=== PATIENT | female | born 1990 | race Caucasian/White ===

== ENCOUNTER 2019-11-05 09:25 | Outpatient (CLI) | payer OTHER, SELFPAY ==
--- NOTE | 2019-11-05 09:57 | PM.IMHP ---
H&P: HPI History of Present Illness Chief complaint: pre-op c/s labs Narrative: Roselyn Jaquez is a 29 year old female the 2 para 1001 with a last menstrual period of 01/26/2019, EDC of 11/11/2019 presents at term 39 weeks gestation for repeat section. She declines attempt at vaginal after . Her has been uncomplicated. She is positive for group B strep. Review of Systems Review of Systems: All systems reviewed & are unremarkable except as noted in HPI and below PMFSH Family History Family History Other Family history of malignant melanoma Social History Social History Smoking status: Never smoker Alcohol intake: current Meds Home Medications and Allergies Home Medications Medication Instructions Recorded Confirmed Type PNV cmb#95-ferrous fumarate-FA 1 tablet PO DAILY 10/15/19 10/15/19 History [] Allergies Allergy/AdvReac Type Severity Reaction Status Date / Time No Known Allergies Allergy Verified 10/15/19 15:36 Exam Const: General: no acute distress Eyes: General: appearance normal, both eyes and all related structures Neck: Neck: supple and no JVD Thyroid: thyroid normal Resp: Effort & Inspection: normal respiratory effort Auscultation: clear to auscultation bilaterally Cardio: Rate: regular rate Rhythm: regular rhythm GI: Inspection: non-distended GI Palp: Yes Soft to palpation, No Tenderness to palpation present (GI) and No Guarding due to palpation present (GI) Auscultation: normal bowel sounds : General: Yes bladder normal to palpation External Female Exam: normal external appearance Speculum Exam - Vagina: normal vaginal discharge and No vaginal bleeding Speculum Exam - Cervix: nontender Bimanual exam- vagina & uterus: bladder normal to palpation and No Cervical tenderness present OB/external & speculum: No vaginal bleeding Skin: General skin exam: no rashes or lesions noted Extrem: General: normal to inspection and no edema Psych: Mental Status: mental status grossly normal Affect: normal affect Assessment and Plan Additional Plan Impression: Term with positive group B strep of the and previous section Plan: Reviewed perforation section. Replenishment Analyst will be made aware of group B strep
[2019-11-05 10:03] LABS: Hematocrit 36.6 % (37.0-47.0); Hemoglobin 12.4 g/dL (12.0-15.0); Mean Corpuscular HGB Conc 33.9 g/dl (32-36); Mean Corpuscular Hemoglobin 31.8 pg (26-34); Mean Corpuscular Volume 93.8 fl (80-100); Mean Platelet Volume 11.6 fl (7.4-10.4); Platelet Count Result 185 k/mm3 (150-375); Red Cell Distribution Width 12.4 % (11.5-14.5); White Blood Count 9.7 K/mm3 (4.5-10.0)
[2019-11-06 10:57] LABS: Rapid Plasma Reagin Non-Reactive (NonReactive)
== END 2019-11-05 09:26 | disposition home or self-care (01) ==
PROVIDERS: PCP Family Medicine; Visit Provider Obstetrics & Gynecology
DX: Z34.93 Encounter for supervision of normal pregnancy, unspecified, third trimester (principal); Z3A.00 Weeks of gestation of pregnancy not specified
CPT/HCPCS: 36415; 85027; 86592; 86850; 86900; 86901

== ENCOUNTER 2019-11-06 05:30 | Inpatient (IN) | payer OTHER, SELFPAY ==
--- NOTE | 2019-11-05 10:00 | HP_ITS ---
This report was moved to the correct visit, [id number], on October 11, 2019. Original report was signed by Dr. Moore on November 05, 2019 at 1000. H&P: HPI History of Present Illness Chief complaint: pre-op c/s labs Narrative: Roselyn Jaquez is a 29 year old female the 2 para 1001 with a last menstrual period of 01/26/2019, EDC of 11/11/2019 presents at term 39 weeks gestation for repeat section. She declines attempt at vaginal after . Her has been uncomplicated. She is positive for group B strep. Review of Systems Review of Systems: All systems reviewed & are unremarkable except as noted in HPI and below PMFSH Family History Family History Other Family history of malignant melanoma Social History Social History Smoking status: Never smoker Alcohol intake: current Meds Home Medications and Allergies Home Medications Medication Instructions Recorded Confirmed Type PNV cmb#95-ferrous fumarate-FA 1 tablet PO DAILY 10/15/19 10/15/19 History [] Allergies Allergy/AdvReac Type Severity Reaction Status Date / Time No Known Allergies Allergy Verified 10/15/19 15:36 Exam Const: General: no acute distress Eyes: General: appearance normal, both eyes and all related structures Neck: Neck: supple and no JVD Thyroid: thyroid normal Resp: Effort & Inspection: normal respiratory effort Auscultation: clear to auscultation bilaterally Cardio: Rate: regular rate Rhythm: regular rhythm GI: Inspection: non-distended GI Palp: Yes Soft to palpation, No Tenderness to palpation present (GI) and No Guarding due to palpation present (GI) Auscultation: normal bowel sounds : General: Yes bladder normal to palpation External Female Exam: normal external appearance Speculum Exam - Vagina: normal vaginal discharge and No vaginal bleeding Speculum Exam - Cervix: nontender Bimanual exam- vagina & uterus: bladder normal to palpation and No Cervical tenderness present OB/external & speculum: No vaginal bleeding Skin: General skin exam: no rashes or lesions noted Extrem: General: normal to inspection and no edema Psych: Mental Status: mental status grossly normal Affect: normal affect Assessment and Plan Additional Plan Impression: Term with positive group B strep of the and previous section Plan: Reviewed perforation section. Sprinkler Irrigation Equipment Mechanic will be made aware of group B strep Report Initialized date/time: Chun Pelaez MD 11/05/19999 Electronically signed by: Chun Pelaez MD 11/05/19999 [facility]
[2019-11-06] VITALS (47 sets, daily range): BP systolic 91–133; BP diastolic 55–90; PULSE 53–74; RESP 16–18; TEMP 36.2–36.8; O2SAT 100; BMI 33.5
--- NOTE | 2019-11-06 06:16 | LDADM ---
This patient, Roselyn Jaquez, was admitted to Labor/Delivery/Recovery 120 on 11/06/19 at 05:30. Plans for labor, pain management and were discussed with patient. Patient/family oriented to hospital policies and general routines including ID bracelet, bed and alarms, visiting hours, pain management, procedures, bathroom and other care routines, personal items, smoking policy, room service/diet and guest tray routines, security routines, and visiting hours. Patient/Family are encouraged to report perceived risks to care and to ask questions if they do not understand what they are told or what they should do. See OBIX for further documentation.
[2019-11-06] MEDS: LACTATED RINGERS 1,000 ML 125 ML IV CONT (06:34)
--- NOTE | 2019-11-06 06:54 | WPDHPUPDATE1 ---
History and Physical Update Update Date/Time: 11/06/19 06:54 History and Physical has been reviewed, including an updated exam of the patient. There are NO changes in the patient's condition. Risks, benefits, and alternatives have been discussed and questions answered. Patient agrees to proceed with procedure.
[2019-11-06] MEDS: ceFAZolin 2 GM/D5W 50 ML 2 GM/50 ML BAG IVPB (07:18)
--- NOTE | 2019-11-06 08:00 | P.OP_ITS ---
Procedure Note - Detailed Date of procedure: 11/06/19 Pre-op diagnosis: repeat Surgeon: Chnu Moore MD Postop diagnosis: Repeat section Anesthesia: Spinal EBL: 255cc Complications: None Findings: Male infant 7 lb 10 oz with Apgars of 9 and 9 at 1 and 5 minutes respectively Description of procedure: Patient was prepped and draped in the normal sterile fashion placed in the supine position. Under excellent spinal anesthetic the abdomen was entered through the previous Pfannenstiel incision and progressive layers to the fascia. The fascia was incised in upward outward fashion bilaterally. A underlying muscles were sharply dissected. Parietal peritoneum mm calculi times and by sharp dissection. This carried superiorly and then inferiorly to the dome of the bladder. Bladder blade was placed placed. Bladder blade was replaced after bladder flap was formed. A low transverse incision made in the head delivered in the JARON position. Nuchal cord was nuchal noted to be loose x1 relieved around the occiput. Anterior posterior shoulder delivered spontaneously. Cord clamped x2 and cut and passed off the table given Apgars of 9 [id number] and 9 [id number]. Cord blood was drawn. Placenta delivered intact manually. Uterus delivered from the abdomen and w rapped in a moist towel. After inspecting the uterus and noting it to be free of debris. The uterus was closed with continuous running locking 0 Vicryl from lateral edge to lateral edge. This was followed by an imbricating running locking 0 Vicryl from lateral edge to lateral edge. Hemostasis was assured. The tubes and ovaries appeared within normal limits. The uterus returned to the abdomen. The laps removed and accounted for. The hysterotomy incision was inspected 1 last time and noted to be hemostatic. The fascia was then closed with continuous running 0 Vicryl from lateral edge to midline bilaterally. The skin was closed with 4 O Monocryl and glue. Blood loss was estimated [id number]. All sponge, needle, instrument counts were correct. There were no immediate complications
--- NOTE | 2019-11-06 10:45 | PC.NURSE ---
Consulted with patient, mother reports infant has a tight tongue. Frenulum is noted, tongue can pass gum ridge. Mother states was able to latch and nurse with minimal tenderness first feeding. Mother breastfed first child. Reviewed feeding cues, frequencies, duration of feedings, feeding elimination flow sheet, and signs of adequate intake. Demonstrated stimulation techniques to wake infant for feeding. Assisted with to breast. Reviewed positioning/alignment in cross cradle, holding breast in U hold and guided asymmetrical latch on. was able to latch correctly. nursed eagerly, with steady draws and frequent swallowing noted. Reviewed signs of a correct latch, effective nursing and suck swallow ratio. was able to maintain latch without discomfort to mother. Nipple care reviewed. Instructed mother to call out for RN assistance if she is unable to latch infant for feeding or she has discomfort with nursing. Instructed feeding should be initiated three hours from start of last feeding or if feeding cues are noted before. Mother voiced understanding of information shared.
[2019-11-06] MEDS: SIMETHICONE 80 MG TAB.CHEW PO ×3 (12:27→19:58)
--- NOTE | 2019-11-06 13:46 | PC.NURSE ---
1025 Patient transferred to post room # via (stretcher ). Support person present. Oriented to unit, room, information board, rooming in, admission packet and security measures. Patient verbalizes understanding.
[2019-11-06] MEDS: DOCUSATE SODIUM 100 MG CAPSULE PO (16:46)
[2019-11-06] MEDS: IBUPROFEN 600 MG TABLET PO ×2 (16:47→23:46)
--- NOTE | 2019-11-06 20:00 | PC.NURSE ---
Patient saline locked at 1999, she received 980 mL of KCl 20 Meq/D5/0.45% Sod Chl @ 125ml/hr. Previous RN did not scan IV bag, I was unable to end the infusion.
[2019-11-07] VITALS: BP 110/66; PULSE 67; RESP 16; TEMP 36.3; O2SAT 100
[2019-11-07] MEDS: SIMETHICONE 80 MG TAB.CHEW PO ×3 (04:39→12:13)
[2019-11-07] MEDS: IBUPROFEN 600 MG TABLET PO ×3 (04:39→18:38)
[2019-11-07 04:40] VITALS: BP 113/69; PULSE 74; RESP 18; TEMP 36.4; O2SAT 100
[2019-11-07 05:54] LABS: Basophils Percent Auto 0.2 % (0.2-1.2); Eosinophils Absolute Auto 0.2 K/mm3 (0-0.3); Eosinophils Percent Auto 1.8 % (0-4.4); Hematocrit 30.7 % (37.0-47.0); Hemoglobin 10.5 g/dL (12.0-15.0); Immature Granulocyte Absolute 0.04 K/mm3 (0.00-0.031); Immature Granulocyte Percent A 0.4 % (0-0.5); Lymphocytes Percent Auto 19.2 % (18.3-44.2); Mean Corpuscular HGB Conc 34.2 g/dl (32-36); Mean Corpuscular Hemoglobin 32.5 pg (26-34); Mean Platelet Volume 11.4 fl (7.4-10.4); Monocytes Absolute Auto 0.5 K/mm3 (0.1-0.6); Monocytes Percent Auto 4.4 % (2.6-8.5); Neutrophils Absolute Auto 7.7 K/mm3 (1.3-6.7); Platelet Count Result 156 k/mm3 (150-375); Red Blood Count 3.23 M/mm3 (4.2-5.4); Red Cell Distribution Width 12.5 % (11.5-14.5); White Blood Count 10.4 K/mm3 (4.5-10.0)
[2019-11-07 07:05] VITALS: BP 114/67; PULSE 80; RESP 18; TEMP 36.7
[2019-11-07] MEDS: MULTIVIT/MIN/PREN/FOL AC/IRON TABLET 1 TAB PO (08:05)
[2019-11-07] MEDS: DOCUSATE SODIUM 100 MG CAPSULE PO ×2 (08:06→15:41)
--- NOTE | 2019-11-07 09:24 | P.PNOB_ITS ---
OB - PN: Subj Subjective Date/time seen: 11/07/19 09:24 Narrative: Pain OK. Tolerating diet. Desires circumcision for son. OB - PN: Obj Data Labs CBC & Chem 7: 11/07/19 04:47 Labs: Laboratory Results - last 24 hr 11/07/19 04:47 WBC 10.4 H RBC 3.23 L Hgb 10.5 L Hct 30.7 L MCV 95.0 MCH 32.5 MCHC 34.2 RDW 12.5 Plt Count 156 MPV 11.4 H Immature Gran % (Auto) 0.4 Neut % (Auto) 74.0 H Lymph % (Auto) 19.2 [place] % (Auto) 4.4 Eos % (Auto) 1.8 Baso % (Auto) 0.2 Lymph # (Auto) 2.00 [place] # (Auto) 0.5 Eos # (Auto) 0.2 Baso # (Auto) 0.0 Abs Immat Gran (auto) 0.04 H Absolute Neuts (auto) 7.7 H Absolute Nucleated RBC 0.0 Nucleated RBC % 0.0 OB - PN A/P Plan Comments: A: POD#1, doing well. P: Routine care. Reviewed circumcision. Exam Psych: Other: AVSS I/O OK ABD soft, nontender, fundus firm. Incision c/d/i. EXT nontender
--- NOTE | 2019-11-07 09:26 | PM.DS ---
DS: Diagnosis Discharge Diagnosis (1) History of delivery: Code(s): Z98.891 - History of uterine scar from previous surgery Status: Acute (2) Term : Code(s): Z34.90 - Encounter for supervision of normal , unspecified, unspecified trimester Status: Acute DS: Summary Time Spent with Patient Time attestation: Total time spent providing and/or coordinating discharge services: DS: Data Data Completed and Pending Labs on day of discharge: Labs from last 24 hours 11/07/19 04:47 WBC 10.4 H RBC 3.23 L Hgb 10.5 L Hct 30.7 L MCV 95.0 MCH 32.5 MCHC 34.2 RDW 12.5 Plt Count 156 MPV 11.4 H Immature Gran % (Auto) 0.4 Neut % (Auto) 74.0 H Lymph % (Auto) 19.2 [place] % (Auto) 4.4 Eos % (Auto) 1.8 Baso % (Auto) 0.2 Lymph # (Auto) 2.00 [place] # (Auto) 0.5 Eos # (Auto) 0.2 Baso # (Auto) 0.0 Abs Immat Gran (auto) 0.04 H Absolute Neuts (auto) 7.7 H Absolute Nucleated RBC 0.0 Nucleated RBC % 0.0 Discharge Plan Discharge Attending physician on discharge: Chun Moore Discharging Clinician: Malick Champion Patient Disposition: Home, Self-Care Activity: may shower, no straining, may drive after 2 weeks and pelvic rest Diet: heart healthy Wound Care Instructions: follow printed instructions Stand Alone Forms: General Discharge Information Follow-up/Referrals: Chun Moore MD [Physician] - (4 weeks) Discharge Medications: New hydrocodone-acetaminophen [[place]] 5-325 mg tablet 1 tablet PO Q4H PRN (Reason: pain) Qty: 30 RF: 0 ibuprofen 600 mg tablet 600 mg PO Q6H PRN (Reason: cramps) Qty: 30 RF: 0 No Action PNV cmb#95-ferrous fumarate-FA [] 28 mg iron- 800 mcg Tablet 1 tablet PO DAILY RF: 0 Date of admission: 11/06/19 05:30 Primary Care Provider: Remington Chapin Admitting Provider: Chun Moore Attending physician on admission: Chun Moore
--- NOTE | 2019-11-07 09:47 | WPDANLDPN2 ---
Anes-Prog Note L&D Date/Time: 11/07/19 09:47 Comfortable throughout: section Neuraxial method: spinal Epidural/Spinal procedure site: clean & non-tender Neuro status: Neuro function grossly intact. Cardiovascular status: normal Respiratory status: normal Airway patency: baseline Mental status: baseline Post-Op hydration status: normal Vital Signs: Last Vital Signs Temp 36.7 C 11/07/19 07:05 Pulse 80 11/07/19 07:05 Resp 18 11/07/19 07:05 BP 114/67 11/07/19 07:05 Pulse Ox 100 11/07/19 04:40 I/O: Intake & Output 11/06/19 11/07/19 11/07/19 23:59 07:59 15:59 Intake Total 1980 1599 Output Total 1 1959 Balance -95 -1100 Post-procedural complaints: none Patient feedback: Patient satisfied with anesthetic care.
--- NOTE | 2019-11-07 09:47 | WPDANLDNPN2 ---
Anes-Prog Note L&D-Neuraxial Date/Time: 11/07/19 09:47 Neuraxial medications: intrathecal PF morphine Opiod-related complaints: none Patient feedback: Patient satisfied with post-operative pain management.
--- NOTE | 2019-11-07 18:40 | PC.NURSE ---
Patient viewed the discharge video Mother & Baby Care, The First Two Weeks . Patient was given the opportunity and encouraged to ask questions. Patient verbalized understanding of information shared and has been given the mother/baby guide for home reference.
[2019-11-07 19:00] VITALS: BP 113/69; PULSE 75; RESP 16; TEMP 36.4; O2SAT 100
[2019-11-08] MEDS: IBUPROFEN 600 MG TABLET PO ×2 (00:32→06:48)
[2019-11-08] MEDS: SIMETHICONE 80 MG TAB.CHEW PO (00:34)
[2019-11-08 08:00] VITALS: BP 112/68; PULSE 65; RESP 16; TEMP 36.7
[2019-11-08] MEDS: DOCUSATE SODIUM 100 MG CAPSULE PO (08:50)
[2019-11-08] MEDS: MULTIVIT/MIN/PREN/FOL AC/IRON TABLET 1 TAB PO (08:51)
== END 2019-11-08 10:24 | disposition home or self-care (01) | DRG 788 ==
LOC: ANHLDR 06:56 → ANHOB2 11-08 09:41 → ANHLDR 11-10 12:03 → ANHOB2 11-10 12:03
PROVIDERS: Admitting Provider Obstetrics & Gynecology; PCP Family Medicine; Visit Provider Obstetrics & Gynecology
PROC: 10D00Z1 Extraction of Products of Conception, Low, Open Approach (ICD-10-PCS; CPT 59514; principal; 2019-11-06 07:30)
DX: O34.211 Maternal care for low transverse scar from previous cesarean delivery (principal); O99.824 Streptococcus B carrier state complicating childbirth; Z37.0 Single live birth; Z3A.39 39 weeks gestation of pregnancy; O69.82X0 Labor and delivery complicated by other cord entanglement, without compression, not applicable or unspecified
CPT/HCPCS: 36415; 85025; A9270; J0131; J0690; J2274; J2590; J7120

== ENCOUNTER 2023-01-08 08:19 | Outpatient (CLI) | payer BC, SELFPAY ==
[2023-01-08 08:50] LABS: Hematocrit 33.4 % (37.0-47.0); Hemoglobin 11.7 g/dL (12.0-15.0); Mean Corpuscular Hemoglobin 33.2 pg (26-34); Mean Corpuscular Volume 94.9 fl (80-100); Mean Platelet Volume 10.8 fl (7.4-10.4); Platelet Count Result 187 k/mm3 (150-375); Red Blood Count 3.52 M/mm3 (4.2-5.4); Red Cell Distribution Width 12.6 % (11.5-14.5); White Blood Count 8.1 K/mm3 (4.5-10.0)
[2023-01-09 10:04] LABS: Rapid Plasma Reagin Non-Reactive (NonReactive)
== END 2023-01-08 08:20 | disposition home or self-care (01) ==
LOC: ANHLAB 08:22
PROVIDERS: PCP Family Medicine; Visit Provider Obstetrics & Gynecology
DX: Z34.93 Encounter for supervision of normal pregnancy, unspecified, third trimester (principal); Z3A.00 Weeks of gestation of pregnancy not specified
CPT/HCPCS: 36415; 85027; 86592; 86850; 86900; 86901

== ENCOUNTER 2023-01-09 05:40 | Inpatient (IN) | payer BC, SELFPAY ==
--- NOTE | 2022-12-17 12:16 | PC.NURSE ---
verified with OR schedule and patient --C/S with tubal ligation on 01/14/23 at 0730 Patient given requisition for lab draw on 01/12/23
--- NOTE | 2023-01-08 12:47 | P.HP_ITS ---
H&P: HPI History of Present Illness Date/Time: 01/08/23 12:47 Chief Complaint: Term with previous section Narrative: A 32-year-old multiparous patient with previous section for repeat c esarean section at term risks and benefits reviewed in full [facility] Family History Family History Grandparent Family history of malignant melanoma Social History Social History Smoking status: Never smoker Second hand tobacco smoke exposure: No Alcohol intake: current Substance use: never Gender identity (if verbalized by the patient): Female Spiritual care concerns: No Meds Home Medications and Allergies Home Medications Medication Instructions Recorded Confirmed Type vit no.95-ferrous 1 tablet PO DAILY 10/15/19 10/15/19 History fumarate 28 mg-folic acid 800 mcg tablet () Allergies Allergy/AdvReac Type Severity Reaction Status Date / Time sulfamethoxazole Allergy Hives Verified 12/17/22 12:01 [From Bactrim] trimethoprim [From Bactrim] Allergy Hives Verified 12/17/22 12:01 Exam Const: General: cooperative, healthy appearing, comfortable and well groomed Nutritional Appearance: average body habitus Orientation/consciousness: oriented to person, oriented to place and oriented to time HENMT: Head: normal to inspection Resp: Effort & Inspection: normal respiratory effort Cardio: Rate: regular rate Rhythm: regular rhythm Heart sounds: S1 normal heart sound present and S2 normal heart sound present GI: Inspection: normal to inspection (Gravid soft uterus) Auscultation: normal bowel sounds : Speculum Exam - Vagina: normal appearance of the vagina Speculum Exam - Cervix: normal appearance of the cervix and Cervical os closed Bimanual exam- vagina & uterus: enlarged Assessment and Plan Assessment and plan (1) History of delivery: Code(s): Z98.891 - History of uterine scar from previous surgery Status: Acute (2) Term : Code(s): Z34.90 - Encounter for supervision of normal , unspecified, unspecified trimester Status: Acute Plan Repeat low-transverse section
[2023-01-09] VITALS (14 sets, daily range): BP systolic 98–125; BP diastolic 39–81; PULSE 33–74; RESP 14–23; TEMP 36.1–37.2; O2SAT 99–100; BMI 32.0
--- NOTE | 2023-01-09 06:12 | LDADM ---
This patient, Roselyn Clay, was admitted to Labor/Delivery/Recovery 120 on 01/09/23 at 05:40. Plans for labor, pain management and were discussed with patient. Patient/family oriented to hospital policies and general routines including ID bracelet, bed and alarms, visiting hours, pain management, procedures, bathroom and other care routines, personal items, smoking policy, room service/diet and guest tray routines, infant security routines, and visiting hours. Patient/Family are encouraged to report perceived risks to care and to ask questions if they do not understand what they are told or what they should do. See OBIX for further documentation.
--- NOTE | 2023-01-09 07:07 | P.PNAN_ITS ---
Anes - Initial Pre Proc Eval Procedure: Operation Date: 01/09/23 07:30 Proposed Procedures p Repeat Section with Tubal Ligation - Chun An MD Date/Time: 01/09/23 07:07 Surgeon: Chun An MD Pre Op Diagnosis: C/S Patient Data Age: 32 Gender: F Height: 1.6 m Weight: 82 kg Allergies Allergy/AdvReac Type Severity Reaction Status Date / Time sulfamethoxazole Allergy Hives Verified 12/17/22 12:01 [From Bactrim] trimethoprim [From Bactrim] Allergy Hives Verified 12/17/22 12:01 Home Medications Medication Instructions Recorded Confirmed Type vit no.95-ferrous 1 tablet PO DAILY 10/15/19 10/15/19 History fumarate 28 mg-folic acid 800 mcg tablet () Patient hx anesthesia problems: none Family hx anesthesia problems: none Results Review: All pre-operative results and documents have been reviewed as part of the pre- operative evaluation. [facility] Family History Family History Grandparent Family history of malignant melanoma Social History Social History Smoking status: Never smoker Second hand tobacco smoke exposure: No Alcohol intake: current Substance use: never Lack of Transportation: No Lack of Food: Never True Current Housing: I Have Housing Concerned About Future Housing: No Difficulty Paying Gas/Electric Bills: No Difficulty Paying for Meds: No Currently Unemployed: No Education: Master's Degree or Higher Difficulty w/ Childcare or Family Care: No Gender identity (if verbalized by the patient): Female Spiritual care concerns: No Anes - Eval Final PreProcedure Day of Procedure 01/09/23 07:07 Patient weight: overweight Heart: regular rate and rhythm Lungs: clear to auscultation Airway: Mallampati scale class II Neurological: alert and oriented Last oral intake: >/= 8 hours ASA classification: II Emergent: no Anesthetic plan: proceed Anesthesia type and monitoring: regional spinal and standard monitoring Results Review: All pre-operative results and documents have been reviewed as part of the pre- operative evaluation. Informed Consent: The patient's anesthetic plan and its attendant risks and benefits were discussed with the patient/family/POA. Questions were solicited and answers provided to the satisfaction of the patient/family/POA.
--- NOTE | 2023-01-09 07:22 | WPDHPUPDATE1 ---
History and Physical Update Update Date/Time: 01/09/23 07:22 History and Physical has been reviewed, including an updated exam of the patient. There are NO changes in the patient's condition. Risks, benefits, and alternatives have been discussed and questions answered. Patient agrees to proceed with procedure. She had expressed desire for permanent sterilization. Will proceed with tubal ligations
[2023-01-09] MEDS: ceFAZolin 2 GM/D5W 50 ML 2 GM/50 ML BAG IVPB (07:31)
[2023-01-09] MEDS: KETOROLAC 30 MG/ML VIAL (*BKC) IV PUSH ×3 (08:13→19:16)
--- NOTE | 2023-01-09 08:16 | W.PM.PROC2 ---
Procedure Note - Detailed Date of Procedure 01/09/23 Pre-op Diagnosis C/Sr sterilization Post-op Diagnosis Same Procedure Performed repeat low transverse section bilateral tubal ligation the modified Inessa method Surgeon Chun An MD Anesthesia Spinal Indications since 32-year-old 3 para 2 at term with previous section who desires permanent sterilization Findings female 7lb 2oz Apgars 8 and 9 at 1 and 5minutes respectively. Normal-appearing ovaries tubes bilaterally. Description of Procedure Patient was prepped draped in the normal sterile fashion placed in the supine position. Under excellent spinal anesthetic the abdomen was entered through the previous Pfannenstiel incision progressive layers of fascia. Fascia incised in midline carried in upward outward fashion bilaterally. Underlying muscles sharply dissected. Parietal peritoneum awake a clamps and by sharp dissection this was carried superiorly. And then down to the bladder. Bladder blade was placed. Bladder flap was formed. Bladder blade returned. Low-transverse incision made the head delivered the JARON position. Anterior posterior shoulder delivered spontaneously. Cord clamped x2 and cut infant passed off the table given Apgars of 8 [id number]. Cord blood was drawn. Placenta delivered intact manually. Uterus delivered on the abdomen wrapped in a moist towel. After assuring no membranes or debris remained in the uterus, the uterus was closed with continuous running 0 Vicryl from lateral edge to lateral edge. This was followed by a 2nd imbricating running locking 0 Vicryl from lateral edge to lateral edge. Hemostasis was assured. The right tube was grasped and a good knuckle of tube formed. This was free tied with 0 chromic. The distal and proximal legs were free tied with 0 chromic in the portion between cut and passed off as portion of right fallopian tube. In like fashion the left fallopian tube was grasped and a good knuckle of tube formed with 0 chromic. The distal and proximal legs were free tied with 0 chromic. The portion between cut and passed off as portion of left fallopian tube. Hysterotomy incision inspected once again noted be hemostatic. Uterus returned the abdomen. Hysterotomy incisions SPECT and 1 last time noted be hemostatic. Laps removed and accounted for. The fascia closed with continuous running 0 Vicryl from lateral edge to midline bilaterally. Irrigation subcutaneous layer and the skin closed with 4 Monocryl and glue. Patient went to recovery in satisfactory condition. All sponge, needle, instrument counts were correct. There were no immediate complications. Estimated Blood Loss 290 Drains No Packing No Pathology Yes ( Bilateral portions of tube) Complications No immediate complications Condition Stable Disposition PACU
[2023-01-09] MEDS: OXYTOCIN 30 UNITS/NS 500 ML 30 UNITS/500 ML BAG 125 UNITS IV CONT (09:11)
[2023-01-09] MEDS: HYDROcodone/acetaminophen (*CRX) 10-325 MG TABLET 1 TAB PO ×5 (09:30→23:45)
[2023-01-09] MEDS: KCL 20 MEQ/D5/0.45% SOD CHL 1,000 ML 125 ML IV CONT (13:40)
[2023-01-09] MEDS: SIMETHICONE 80 MG TAB.CHEW PO (16:45)
--- NOTE | 2023-01-09 18:57 | OBPPTRN ---
1044 Patient transferred to post room #284 via stretcher. Support person present. Oriented to unit, room, information board, rooming in, admission packet and security measures. Patient verbalizes understanding.
[2023-01-09] MEDS: IBUPROFEN 600 MG TABLET PO (23:46)
[2023-01-10 00:45] VITALS: TEMP 36.5
[2023-01-10] MEDS: HYDROcodone/acetaminophen (*CRX) 10-325 MG TABLET 1 TAB PO ×6 (03:22→22:41)
[2023-01-10 04:52] VITALS: BP 104/61; PULSE 64; RESP 16; TEMP 36.6; O2SAT 100
[2023-01-10 05:53] LABS: Basophils Percent Auto 0.1 % (0.2-1.2); Eosinophils Absolute Auto 0.1 K/mm3 (0-0.3); Eosinophils Percent Auto 0.6 % (0-4.4); Hematocrit 27.6 % (37.0-47.0); Hemoglobin 9.4 g/dL (12.0-15.0); Immature Granulocyte Absolute 0.03 K/mm3 (0.00-0.031); Immature Granulocyte Percent A 0.3 % (0-0.5); Lymphocytes Absolute Auto 1.92 K/mm3 (0.9-3.2); Lymphocytes Percent Auto 17.7 % (18.3-44.2); Mean Corpuscular HGB Conc 34.1 g/dl (32-36); Mean Corpuscular Hemoglobin 33.1 pg (26-34); Mean Corpuscular Volume 97.2 fl (80-100); Mean Platelet Volume 11.1 fl (7.4-10.4); Monocytes Absolute Auto 0.6 K/mm3 (0.1-0.6); Monocytes Percent Auto 5.9 % (2.6-8.5); Neutrophils Absolute Auto 8.2 K/mm3 (1.3-6.7); Neutrophils Percent Auto 75.4 % (45.5-73.1); Platelet Count Result 149 k/mm3 (150-375); Red Blood Count 2.84 M/mm3 (4.2-5.4); Red Cell Distribution Width 12.9 % (11.5-14.5); White Blood Count 10.8 K/mm3 (4.5-10.0)
[2023-01-10] MEDS: IBUPROFEN 600 MG TABLET PO ×3 (07:31→22:41)
[2023-01-10] MEDS: MULTIVIT/MIN/PREN/FOL AC/IRON TABLET 1 TAB PO (07:32)
[2023-01-10] MEDS: DOCUSATE SODIUM 100 MG CAPSULE PO ×2 (07:32→16:01)
[2023-01-10] MEDS: POLYSACCHARIDE IRON COMPLEX 150 MG CAPSULE PO ×2 (07:32→16:01)
[2023-01-10] MEDS: LANOLIN (LANSINOH) 7.5 GM CREAM 1 APPLIC TOPICAL (07:33)
--- NOTE | 2023-01-10 07:47 | PM.OBPNVD ---
OB - PN: Subj Subjective Date/time seen: 01/10/23 07:47 Patient comments: no complaints and pain well controlled baby status: doing well and nursing well OB - PN: Obj Data Labs 01/10/23 05:10 Labs: Laboratory Results - last 24 hr 01/10/23 05:10 WBC 10.8 H RBC 2.84 L Hgb 9.4 L Hct 27.6 L MCV 97.2 MCH 33.1 MCHC 34.1 RDW 12.9 Plt Count 149 L MPV 11.1 H Immature Gran % (Auto) 0.3 Neut % (Auto) 75.4 H Lymph % (Auto) 17.7 L [place] % (Auto) 5.9 Eos % (Auto) 0.6 Baso % (Auto) 0.1 L Lymph # (Auto) 1.92 [place] # (Auto) 0.6 Eos # (Auto) 0.1 Baso # (Auto) 0.0 Abs Immat Gran (auto) 0.03 Absolute Neuts (auto) 8.2 H Absolute Nucleated RBC 0.0 Nucleated RBC % 0.0 OB - PN A/P Plan day: 1 Plan: routine care Time Spent With Patient Time: Total time spent is greater than 50% in coordination of care (as documented) at patient's floor/unit and/or counseling patient: Time with patient: less than 15 minutes Exam Const: General: cooperative, healthy appearing and comfortable Nutritional Appearance: average body habitus Orientation/consciousness: oriented to person, oriented to place and oriented to time HENMT: Head: normal to inspection Resp: Effort & Inspection: normal respiratory effort Cardio: Rate: regular rate Rhythm: regular rhythm Heart sounds: S1 normal heart sound present and S2 normal heart sound present GI: Inspection: normal to inspection ( fundus firm below umbilicus) and incision ( clean dry and intact)
--- NOTE | 2023-01-10 07:48 | PM.DS ---
DS: Admitting Diagnosis Discharge Date 01/11/2023 Admitting Diagnosis term / previous section /sterilization DS: Discharge Diagnosis Discharge Diagnosis (1) Term : Code(s): Z34.90 - Encounter for supervision of normal , unspecified, unspecified trimester Status: Acute (2) History of delivery: Code(s): Z98.891 - History of uterine scar from previous surgery Status: Acute (3) Sterilization: Code(s): Z30.2 - Encounter for sterilization Status: Acute DS: Summary Hospital Course Reason for hospitalization: patient was admitted for repeat section and tubal ligation on 01/09/2023 Hospital Course: the patient underwent an unremarkable repeat section and bilateral tubal ligation on 01/09/2023. Her hospital course was unremarkable. She remained afebrile. She was up, voiding without difficulty, eating regular diet, ambulating, and generally without complaints. Time Spent with Patient Time attestation: Total time spent providing and/or coordinating discharge services: Exam Const: General: cooperative, healthy appearing, comfortable and well groomed Nutritional Appearance: average body habitus Orientation/consciousness: oriented to person, oriented to place and oriented to time HENMT: Head: normal to inspection Resp: Effort & Inspection: normal respiratory effort Cardio: Rate: regular rate Rhythm: regular rhythm Heart sounds: S1 normal heart sound present and S2 normal heart sound present GI: Inspection: normal to inspection and incision ( Clean dry and intact) Auscultation: normal bowel sounds DS: Data Data Completed and Pending Pending studies at discharge: Pending at discharge 01/09/23 08:01 Surgical [PTH] Routine Labs on day of discharge: Labs from last 24 hours 01/10/23 05:10 WBC 10.8 H RBC 2.84 L Hgb 9.4 L Hct 27.6 L MCV 97.2 MCH 33.1 MCHC 34.1 RDW 12.9 Plt Count 149 L MPV 11.1 H Immature Gran % (Auto) 0.3 Neut % (Auto) 75.4 H Lymph % (Auto) 17.7 L [place] % (Auto) 5.9 Eos % (Auto) 0.6 Baso % (Auto) 0.1 L Lymph # (Auto) 1.92 [place] # (Auto) 0.6 Eos # (Auto) 0.1 Baso # (Auto) 0.0 Abs Immat Gran (auto) 0.03 Absolute Neuts (auto) 8.2 H Absolute Nucleated RBC 0.0 Nucleated RBC % 0.0 Discharge Plan Discharge Attending physician on discharge: Chun Pelaez Discharging Clinician: Chun Pelaez Patient Disposition: Home, Self-Care Activity: may shower and pelvic rest Diet: heart healthy Wound Care Instructions: follow printed instructions Patient Instructions: Antibiotic Form Stand Alone Forms: General Discharge Information Follow-up/Referrals: Chun Pelaez MD [Physician] - Discharge Medications: New hydrocodone-acetaminophen 5-325 mg tablet 1 tablet PO Q4H PRN (Reason: pain) Qty: 30 0RF Continued PNV [id number] fumarate-FA [] 28 mg iron- 800 mcg Tablet 1 tablet PO DAILY Date of admission: 01/09/23 05:40 Primary Care Provider: Remington Chapin Admitting Provider: Chun Pelaez Attending physician on admission: Chun Pelaez Condition: Stable
[2023-01-10 08:21] VITALS: BP 113/82; PULSE 62; RESP 14; TEMP 36.7; O2SAT 100
--- NOTE | 2023-01-10 09:05 | WPDANLDNPN2 ---
Anes-Prog Note L&D-Neuraxial Date/Time: 01/10/23 09:05 Patient feedback: Patient satisfied with post-operative pain management.
--- NOTE | 2023-01-10 09:05 | WPDANLDPN2 ---
Anes-Prog Note L&D Date/Time: 01/10/23 09:05 Neuro status: Neuro function grossly intact. Vital Signs: Last Vital Signs Temp 36.6 C 01/10/23 04:52 Pulse 64 01/10/23 04:52 Resp 16 01/10/23 04:52 BP 104/61 01/10/23 04:52 Pulse Ox 100 01/10/23 04:52 O2 Del Method Room Air 01/10/23 08:00 Pain score (VAS): 2 I/O: Intake & Output 01/09/23 01/10/23 01/10/23 23:59 07:59 15:59 Intake Total 1800 400 Output Total 1800 1900 Balance 0 -1500 Patient feedback: Patient satisfied with anesthetic care.
[2023-01-10 14:37] VITALS: TEMP 36.7
[2023-01-10] MEDS: SIMETHICONE 80 MG TAB.CHEW PO (19:21)
[2023-01-10 19:30] VITALS: BP 111/70; PULSE 76; RESP 16; RESP 18; TEMP 36.8; O2SAT 100
[2023-01-11] MEDS: HYDROcodone/acetaminophen (*CRX) 10-325 MG TABLET 1 TAB PO ×3 (01:36→09:30)
[2023-01-11] MEDS: IBUPROFEN 600 MG TABLET PO (05:42)
[2023-01-11 07:35] VITALS: BP 124/72; PULSE 72; RESP 16; TEMP 36.6; O2SAT 100
--- NOTE | 2023-01-11 08:16 | PM.OBPNVD ---
OB - PN: Subj Subjective Date/time seen: 01/11/23 08:16 Patient comments: no complaints and pain well controlled baby status: doing well and nursing well OB - PN: Obj Data Labs 01/10/23 05:10 OB - PN A/P Plan day: 2 Plan: routine care, discharge home and follow up 6 weeks (4) Time Spent With Patient Time: Total time spent is greater than 50% in coordination of care (as documented) at patient's floor/unit and/or counseling patient: Time with patient: less than 15 minutes Exam Const: General: cooperative, healthy appearing and comfortable Nutritional Appearance: average body habitus Orientation/consciousness: oriented to person, oriented to place and oriented to time Resp: Effort & Inspection: normal respiratory effort Cardio: Rate: regular rate Rhythm: regular rhythm Heart sounds: S1 normal heart sound present and S2 normal heart sound present GI: Inspection: normal to inspection and incision (Clean dry and intact)
[2023-01-11] MEDS: DOCUSATE SODIUM 100 MG CAPSULE PO (09:30)
[2023-01-11] MEDS: MULTIVIT/MIN/PREN/FOL AC/IRON TABLET 1 TAB PO (09:30)
[2023-01-11] MEDS: POLYSACCHARIDE IRON COMPLEX 150 MG CAPSULE PO (09:30)
== END 2023-01-11 11:27 | disposition home or self-care (01) | DRG 785 ==
LOC: ANHLDR 07:24 → ANHOB2 10:53
PROVIDERS: Admitting Provider Obstetrics & Gynecology; PCP Family Medicine; Visit Provider Obstetrics & Gynecology
PROC: 10D00Z1 Extraction of Products of Conception, Low, Open Approach (ICD-10-PCS; CPT 59514; principal; 2023-01-09 07:30)
DX: O34.219 Maternal care for unspecified type scar from previous cesarean delivery (principal); Z30.2 Encounter for sterilization; O99.824 Streptococcus B carrier state complicating childbirth; Z3A.39 39 weeks gestation of pregnancy; Z37.0 Single live birth
CPT/HCPCS: 36415; 85025; 85027; 86592; 86850; 86900; 86901; 88302; A9270; J0330; J0690; J1100; J1885; J2274; J2405; J2590; J3480